=== PATIENT | female | born 1995 | race Caucasian/White ===

== ENCOUNTER 2018-03-09 23:05 | Emergency (ER) | payer OTHER ==
[~2018-03-09] VITALS: Ht 157.5 cm; Wt 79.0 kg
[~2018-03-09 23:05] MED LIST: NO MEDS
[2018-03-09 23:10] VITALS: BP 129/95
[2018-03-09 23:48] LABS: APPEARANCE,URINE HAZY (CLEAR); BILIRUBIN,URINE NEGATIVE (NEGATIVE); BLOOD, URINE NEGATIVE (NEGATIVE); COLOR,URINE YELLOW (YELLOW); LEUKOCYTE ESTERASE ,URINE NEGATIVE (NEGATIVE); NITRITE, URINE NEGATIVE (NEGATIVE); UGLUCOSE NEGATIVE (NEGATIVE)
[2018-03-10] LABS: RBC,URINE 0-5 (RARE) /HPF (0-5)
[2018-03-10 00:02] LABS: CALCIUM OXALATE CRYSTALS,UR 0-5 /HPF (None Seen)
[2018-03-10] MEDS ORDERED: PHENAZOPYRIDINE 100 MG TAB PO ONE (00:40)
[2018-03-10 04:50] VITALS: BP 129/95
== END 2018-03-10 04:50 | disposition home or self-care (01) ==
LOC: MED 23:05
DX: O98.812 Other maternal infectious and parasitic diseases complicating pregnancy, second trimester (principal); Z3A.16 16 weeks gestation of pregnancy
CPT/HCPCS: 76705; 76805; 81001; 81025; 87086; 99285; Q0092

== ENCOUNTER 2018-12-03 14:37 | Emergency (ER) | payer OTHER ==
[~2018-12-03] VITALS: Ht 157.5 cm; Wt 78.7 kg
[2018-12-03 15:18] VITALS: BP 130/63
[2018-12-03 15:50] LABS: BASOPHILS % (AUTO) 0.7 % (0.0-2.0); EOSINOPHILS # (AUTO) 0.1 K/uL (0-0.4); HEMATOCRIT 41.6 % (36-48); HEMOGLOBIN 14.3 g/dL (12.0-16.0); LYMPHOCYTES # (AUTO) 2.5 K/uL (2.5-16.5); LYMPHOCYTES % (AUTO) 34.5 % (20.5-51.1); MEAN CORPUSCULAR HEMOGLOBIN 30 pg (27-31); MEAN CORPUSCULAR HGB CONC 34 g/dL (33-37); MEAN CORPUSCULAR VOLUME 88.1 fL (80-94); MONOCYTES # (AUTO) 0.5 K/uL (0.8-1.0); MONOCYTES % (AUTO) 6.7 % (1.7-9.3); NEUTROPHILS # (AUTO) 4.1 K/uL (1.8-7.7); NEUTROPHILS % (AUTO) 56.1 % (42.2-75.2); PLATELET COUNT (AUTO) 197 K/uL (140-450); RED BLOOD CELL COUNT(AUTO) 4.72 MIL/uL (4.20-5.40); RED CELL DISTRIBUTION WIDTH 13.6 % (11.6-13.7); WHITE BLOOD COUNT (AUTO) 7.3 K/uL (4.8-10.8)
[2018-12-03 15:55] LABS: APPEARANCE,URINE CLEAR (CLEAR); BILIRUBIN,URINE NEGATIVE (NEGATIVE); BLOOD, URINE NEGATIVE (NEGATIVE); COLOR,URINE YELLOW (YELLOW); LEUKOCYTE ESTERASE ,URINE NEGATIVE (NEGATIVE); NITRITE, URINE NEGATIVE (NEGATIVE); PH,URINE 5.5 (5.0-9.0); UGLUCOSE NEGATIVE (NEGATIVE)
--- NOTE | 2018-12-03 16:20 | NUR ---
PT TO ER BED 12
--- NOTE | 2018-12-03 16:30 | NUR ---
BIB SELF WITH SISTER. AAO X4 C/O ABD PAIN SINCE October. PT REPORTS INTERMITENT CRAMPING PAIN IN RLQ. + NAUSEA AND DIARRHEA. - FEVER. PT STATES SHE HAD A BABY 3 MONTHS AGO AND HAD SAME PAIN DURING . ER TO EVALUATE PT.
--- NOTE | 2018-12-03 16:30 | NUR ---
Note undone in EDM - 12/03/18 at 1855 by MED BIB SISTER. AAO X4 C/O ABD PAIN SINCE October. PT REPORTS INTERMITENT CRAMPING PAIN IN RLQ. + NAUSEA AND DIARRHEA. - FEVER. PT STATES SHE HAD A BABY 3 MONTHS AGO AND HAD SAME PAIN DURING . ER TO EVALUATE PT.
[2018-12-03 16:31] LABS: ALBUMIN 3.7 g/dL (3.4-5.0); ANION GAP 12.3 (8-16); CARBON DIOXIDE 27.1 mmol/L (21-32); CREATININE 0.7 mg/dL (0.6-1.3); POTASSIUM 4.4 mmol/L (3.5-5.1); TOTAL BILIRUBIN 0.8 mg/dL (0.0-1.0)
[2018-12-03] MEDS ORDERED: NACL 0.9% 1,000 ML IV SCH (17:04)
[2018-12-03] MEDS ORDERED: NACL 0.9% 1,000 ML IV ONE (17:04)
[2018-12-03] MEDS ORDERED: MORPHINE SULFATE 2 MG/ML SYR IVP ONE (17:05)
[2018-12-03] MEDS ORDERED: KETOROLAC 30 MG/ML VIAL IVP ONE (17:05)
[2018-12-03] MEDS ORDERED: ONDANSETRON 4 MG/2 ML VIAL IVP ONE (17:05)
--- NOTE | 2018-12-03 17:06 | NUR ---
DR BERRIOS AT BEDSIDE FOR PT EVAL
--- NOTE | 2018-12-03 17:30 | NUR ---
ULTRASOUND AT BEDSIDE.
[2018-12-03 17:46] LABS: AMYLASE 59 U/L (25-115); LIPASE 200 U/L (73-393)
--- NOTE | 2018-12-03 17:59 | NUR ---
PT TAKEN TO CT VIA WHEELCHAIR BY BUSINESS OFFICE ASSOCIATE
[2018-12-03 19:03] VITALS: BP 98/60
--- NOTE | 2018-12-03 19:10 | NUR ---
received report from MITESH Alarcon. assumed care at this time
--- NOTE | 2018-12-03 19:10 | NUR ---
Pt report given to MITESH Buenrostro. Transfer of care at this time.
--- NOTE | 2018-12-03 19:29 | NUR ---
Patient discharged with v/s stable. Written and verbal after care instructions given and explained. Patient alert, oriented and verbalized understanding of instructions. Ambulatory with steady gait. All questions addressed prior to discharge. ID band removed. Patient advised to follow up with PMD. Rx of Levsin given. Patient educated on indication of medication including possible reaction and side effects. Opportunity to ask questions provided and answered.
--- NOTE | 2018-12-17 06:59 | NUR ---
Late entry. Confirmed with RN that 1000ml 0.9NS IV completed at 1830.
== END 2018-12-03 19:29 | disposition home or self-care (01) ==
LOC: MED 14:37
DX: R14.1 Gas pain (principal); R11.0 Nausea; R19.7 Diarrhea, unspecified
CPT/HCPCS: 36415; 74176; 76856; 80053; 81003; 81025; 82150; 83690; 84703; 85025; 96361; 96374; 96375; 99284; J1885; J2270; J2405; J7030; Q0092

== ENCOUNTER 2020-11-27 13:49 | Emergency (ER) | payer OTHER ==
[~2020-11-27] VITALS: Ht 162.6 cm; Wt 82.6 kg
[2020-11-27 13:50] VITALS: BP 124/66
[2020-11-27] MEDS ORDERED: KETOROLAC 30 MG/ML VIAL IM ONE (14:10)
[2020-11-27] MEDS ORDERED: TRAM50TA3 PO (14:10)
[2020-11-27] MEDS ORDERED: POLY10SO OP (14:10)
[2020-11-27 14:45] VITALS: BP 124/66
== END 2020-11-27 14:40 | disposition home or self-care (01) ==
LOC: MED 13:49
DX: K08.89 Other specified disorders of teeth and supporting structures (principal); H10.9 Unspecified conjunctivitis
CPT/HCPCS: 96372; 99283; J1885

== ENCOUNTER 2020-12-02 10:09 | Emergency (ER) | payer OTHER ==
[~2020-12-02] VITALS: Ht 162.6 cm; Wt 83.0 kg
[~2020-12-02 10:09] MED LIST changes: +POLY10SO OP; +TRAM50TA3 PO
--- NOTE | 2020-12-02 10:09 | NUR ---
BIBA TO BED 11
[2020-12-02 10:13] VITALS: BP 137/75
--- NOTE | 2020-12-02 10:14 | NUR ---
DR MCFARLAND AT BEDSIDE EXAMINING PATIENT
--- NOTE | 2020-12-02 10:19 | NUR ---
25/F biba to ED with c/o mouth and throat pain. Patient states she was seen at her dentist yesterday where she had 3 of her wisdom teeth removed. Patient states she has since been in 04/04 pain and has been experiencing increasing bleeding with no relief. Patient states she was given RX of Ibuprofen but states she has not experienced relief, stating the pain has radiated to her throat and swallowing and talking has been worsening the pain. No bleeding noted at this time, face slightly swollen. Patient alert and oriented x4, speaking in clear sentences, denies any shortness of breath or difficulty swallowing, no drooling noted.
[2020-12-02] MEDS ORDERED: HYDROcodone/APAP 5/325 MG 1 TAB TAB PO ONE (10:25)
[2020-12-02] MEDS ORDERED: ACET-8386 PO (10:36)
[2020-12-02] MEDS ORDERED: AMOX75PD47 PO (10:36)
[2020-12-02] MEDS ORDERED: IBUP-2886 PO (10:36)
--- NOTE | 2020-12-02 10:43 | NUR ---
Patient discharged with v/s stable. Written and verbal after care instructions given and explained. Patient alert, oriented and verbalized understanding of instructions. Ambulatory with steady gait. All questions addressed prior to discharge. ID band removed. Patient advised to follow up with PMD. Rx of [place], Amoxicillin and Ibuprofen given. Patient educated on indication of medication including possible reaction and side effects. Opportunity to ask questions provided and answered.
[2020-12-02 10:44] VITALS: BP 137/75
== END 2020-12-02 10:43 | disposition home or self-care (01) ==
LOC: MED 10:09
DX: J02.9 Acute pharyngitis, unspecified (principal); K08.89 Other specified disorders of teeth and supporting structures; Z79.899 Other long term (current) drug therapy
CPT/HCPCS: 99283